=== PATIENT | female | born 1970 | race African-American/Black ===

== ENCOUNTER 2017-05-31 06:54 | Emergency (ER) | payer MEDICAID ==
[~2017-05-31] VITALS: Ht 170.2 cm; Wt 109.3 kg
[2017-05-31 07:12] VITALS: BP 121/77
--- NOTE | 2017-05-31 07:49 | Emergency Room Report ---
History of Present Illness General Chief Complaint: Multiple Trauma/Fall Source: Patient Present Illness HPI Patient is a 46-year-old female who presented after increased right foot pain after fall. Patient reports falling from standing position. She reports having prior ankle surgery on the right side in 2007. She reports having increased pain with weightbearing. She denies any numbness or weakness. Allergies: Coded Allergies: No Known Allergies (Unverified , 05/31/17) Patient History Last Menstrual Period: may 28 Now: No Reviewed Nursing Documentation: PMH: Agreed, PSxH: Agreed Nursing Documentation-PMH Past Medical History: No Stated History Review of Systems All Other Systems: negative except mentioned in HPI Physical Exam Vital Signs Date Time Temp Pulse Resp B/P (MAP) Pulse Ox O2 Delivery O2 Flow Rate FiO2 05/31/17 06:58 97.8 83 18 120/76 98 Room Air 97.9 General Appearance: well appearing, no apparent distress, alert, GCS 15 Head: normocephalic, atraumatic ENT: hearing grossly normal, normal voice Neck: full range of motion, supple Respiratory: no respiratory distress, speaking full sentences Musculoskeletal: no calf tenderness, swelling - right foot Neurologic: normal inspection, alert, oriented x3, responsive, normal gait Psychiatric: mood/affect normal Skin: other - foot swelling, no echymosis Medical Decision Making Diagnostic Impression: Primary Impression: Fall Additional Impression: Fracture of metatarsal of right foot, closed ER Course Patient presented for foot pain. Differential diagnoses include was was not limited to cellulitis, foreign body, fracture, plantar fasciitis, vascular insufficiency, sprain. X-ray imaging of the right foot 3 views interpreted by me showed multiple fractures of the proximal metatarsals. The patient is advised to follow up with primary care doctor in 1-2 days for orthopedic referral. Patient is advised to return if any worsening condition or if any changes in status that are concerning. This report is dictated with [employer] propeller engineer software which may occasionally lead to discrepancies related to use of this software. Last Vital Signs Date Time Temp Pulse Resp B/P (MAP) Pulse Ox O2 Delivery O2 Flow Rate FiO2 05/31/17 07:12 98.0 72 18 121/77 99 Room Air 98.0 Status: improved Disposition: HOME, SELF-CARE Condition: Stable Diallo Castañeda May 31, 2017 07:48
[2017-05-31] MEDS ORDERED: IBUPROFEN600 MG ORAL (08:18)
[2017-05-31] MEDS ORDERED: PERCOCET 5-3251 EACH ORAL (08:18)
[2017-05-31] MEDS ORDERED: HYDROcodone/Acetamin 10/325 tab ORAL ONE (08:30)
[2017-05-31 08:50] VITALS: BP 116/74
--- NOTE | 2017-05-31 09:09 | Diagnostic Imaging Report ---
Indication: Pain, trauma Technique: 3 views right foot Comparison: none Findings: There is a nondisplaced fracture through the base of the first metatarsal, extending into the articular surface. There are also nondisplaced fractures of the second third and fourth metatarsals. There is widening of the joint space between the calcaneus and the cuboid. There is suggestion of abnormal alignment of the cuboid and the cuneiforms, not well demonstrated. Surgical hardware is seen reducing old distal tibial and fibular fractures. There is some flattening of the anterior superior calcaneus on the lateral view, which appears chronic. There is slight fragmentation of the anterior talus as well as flattening of the talar dome which also appears chronic. Impression: Positive for fractures of the first through fourth metatarsals. Evidence of midfoot subluxation as described, not optimally demonstrated. CT may be useful for better characterization if clinically indicated Chronic posttraumatic and postsurgical changes as described Findings discussed by phone with Dr. Castañeda in the emergency room previously
--- NOTE | 2017-05-31 09:14 | Diagnostic Imaging Report ---
Indication: Ankle pain Technique: 3 views of the right ankle Comparison: none Findings: There is a side plate and screws on the lateral aspect of the tibia reducing old healed fracture. There is a screw through the medial malleolus reducing old healed fracture. There are lateral sideplate and screws of the distal fibula, reducing and old fracture. There is possibly a residual oblique fracture line through the fibula, however. There is slight widening of the medial ankle mortise There are fractures of multiple metatarsals, described in detail on the for to the foot radiograph performed at the same time. There is flattening of the anterior calcaneus on the lateral view, likely reflecting old injury. There is slight fragmentation of the dorsal surface of the talus which is presumably chronic as well as slight flattening of the talus. No definite acute ankle fracture. Impression: Evidence of prior trauma and surgery of the distal tibia and fibula. Note lucency through the distal fibula, could indicate partial nonunion Slight widening of the medial ankle mortise could indicate slight subluxation, suspect chronic Complex midfoot fracture, described in detail on report of foot radiograph performed at the same time
== END 2017-05-31 08:50 | disposition home or self-care (01) ==
LOC: EMR 07:59
DX: S92.314A Nondisplaced fracture of first metatarsal bone, right foot, initial encounter for closed fracture (principal); S92.324A Nondisplaced fracture of second metatarsal bone, right foot, initial encounter for closed fracture; S92.334A Nondisplaced fracture of third metatarsal bone, right foot, initial encounter for closed fracture; S92.344A Nondisplaced fracture of fourth metatarsal bone, right foot, initial encounter for closed fracture; W18.30XA Fall on same level, unspecified, initial encounter; Y93.9 Activity, unspecified; Y92.9 Unspecified place or not applicable
CPT/HCPCS: 81025; 99284